=== PATIENT | female | born 1945 | race Caucasian/White ===

== ENCOUNTER 2023-11-25 17:32 | Outpatient (CLI) | payer MEDICARE | END 2023-11-25 17:33 | disposition critical access hospital (66) | LOC: EMS 17:32 | DX: M25.552 Pain in left hip (principal); R11.2 Nausea with vomiting, unspecified; W18.30XA Fall on same level, unspecified, initial encounter; Y92.481 Parking lot as the place of occurrence of the external cause | CPT/HCPCS: A0425; A0429 ==

== ENCOUNTER 2023-11-25 17:59 | Observation (INO) | payer MEDICARE, OTHER ==
--- NOTE | 2023-11-25 18:26 | ED Physician Documentation ---
History of Present Illness - Stated complaint Stated Complaint: GLF/HEAD STRIKE - Chief complaint Chief Complaint: Trauma Hd/Nk - History obtained from History obtained from: Patient, Family () - History of Present Illness Timing: Prior to arrival - Additonal information Additional information: Patient is a 78-year-old female presenting to the emergency department with symptoms of fall after missing the last step at a restaurant. On arrival patient appears partially confused. She has repetitive questioning which is abnormal according to . She did not lose consciousness and EMS were called to patient to bring patient to the emergency department. Patient reports left hip pain no neck pain she notes mild nausea but no episodes of vomiting. Patient ANO x 2 on arrival. She follows some simple commands but has difficulty followibng all commands. She reports only hip pain no head pain. notes she is not on any blood thinners. He notes she was feeling completely fine prior to this. PD PAST MEDICAL HISTORY - Present Medications Home Medications: Ambulatory Orders Medication Instructions Recorded Confirmed Atorvastatin Calcium 40 mg PO QPM 11/26/23 11/26/23 Levothyroxine Sodium [Synthroid] 75 mcg PO DAILY 11/26/23 11/26/23 Losartan [Cozaar] 100 mg PO DAILY 11/26/23 11/26/23 Omeprazole 20 mg PO DAILY 11/26/23 11/26/23 amLODIPine [Norvasc] 10 mg PO DAILY 11/26/23 11/26/23 atenoloL [Tenormin] 100 mg PO QPM 11/26/23 11/26/23 Docusate Sodium 250Mg Capsule 250 mg PO DAILY cap 11/27/23 [Colace 250Mg Capsule] Ondansetron Odt [Zofran Odt] 4 mg TL Q4HR PRN #30 tab 11/27/23 Calcium Carb ([place]) 500 mg PO DAILY #30 tab 11/28/23 [[place]-500] Cholecalciferol [Vitamin D3] 800 unit PO DAILY #30 tab 11/28/23 Gabapentin [Neurontin] 100 mg PO TID #90 cap 11/28/23 HYDROcod/ACETAM 5/325 [[place] 5/325] 1 tab PO Q6H PRN #40 tab 11/28/23 Magnesium Oxide [Mag Ox] 400 mg PO DAILYWM #30 tab 11/28/23 ONDANSETRON ODT Prepack 2 [ZOFRAN 4 mg TL Q6H PRN #20 tablet 11/29/23 ODT Prepack 2] - Allergies Allergies/Adverse Reactions: Allergies Allergy/AdvReac Type Severity Reaction Status Date / Time cephalexin AdvReac Unknown Verified 11/25/23 18:13 codeine AdvReac Unknown Verified 11/25/23 18:12 morphine AdvReac Unknown Verified 11/25/23 18:12 tramadol AdvReac Unknown Verified 11/25/23 18:13 PD ED PE NORMAL - Vitals Vital signs reviewed: Yes - General General: Other (Patient ANO x 2 appears somnolent on arrival only able to answer simple questions and simple commands has trouble focusing on repetitive questioning.) - HEENT HEENT: Other (No palpable hematoma on examination.) - Neck Neck: Other (C-spine tenderness noted on examination patient has no step-off on examination.) - Cardiac Cardiac: RRR, No murmur, No gallop, No rub - Respiratory Respiratory: No respiratory distress, Clear bilaterally - Abdomen Abdomen: Normal bowel sounds Results - Vitals Vitals: Oxygen O2 Source Room air - Labs Labs: Laboratory Tests 11/25/23 11/25/23 11/25/23 18:54 18:54 18:54 WBC 9.3 RBC 3.70 L Hgb 11.4 L Hct 34.4 L MCV 93.0 MCH 30.8 MCHC 33.1 RDW 12.3 Plt Count 280 MPV 9.5 Neut # (Auto) 6.5 Lymph # (Auto) 2.1 [place] # (Auto) 0.5 Eos # (Auto) 0.1 Baso # (Auto) 0.1 Absolute Nucleated RBC 0.00 Nucleated RBC % 0.0 PT 12.1 INR 1.1 Sodium 129 L Potassium 3.9 Chloride 98 L Carbon Dioxide 20 L Anion Gap 11.0 BUN 21 H Creatinine 1.1 Estimated GFR (MDRD) 48 L Glucose 174 H Calcium 9.7 Total Bilirubin 0.4 AST 24 ALT 15 Alkaline Phosphatase 123 H Troponin I High Sens Total Protein 7.5 Albumin 4.3 Globulin 3.2 Albumin/Globulin Ratio 1.3 11/25/23 18:54 WBC RBC Hgb Hct MCV MCH MCHC RDW Plt Count MPV Neut # (Auto) Lymph # (Auto) [place] # (Auto) Eos # (Auto) Baso # (Auto) Absolute Nucleated RBC Nucleated RBC % PT INR Sodium Potassium Chloride Carbon Dioxide Anion Gap BUN Creatinine Estimated GFR (MDRD) Glucose Calcium Total Bilirubin AST ALT Alkaline Phosphatase Troponin I High Sens 6.7 Total Protein Albumin Globulin Albumin/Globulin Ratio PD Medical Decision Making - ED course Complexity details: reviewed old records, reviewed results ED course: Patient is a 78-year-old female presenting to the emergency department With left hip pain head pain after fall while walking down the stairs at a restaurant. Patient did not lose consciousness she is not on blood thinners. However on arrival patient appeared confused ANO x 1 not answering all questions only following simple commands this is not her baseline according to on arrival.No specific focal deficits. Reproducible palpable left hip tenderness on examination no obvious swelling no obvious deformity on exam patient has movement of bilateral ankles and bilateral knees intact. No midline shift. No intracranial masses or hemorrhage. Recio-white matter interface is normal. Moderate periventricular white matter hypoattenuation, likely secondary to chronic microvascular ischemic disease. Parenchymal volume loss with concordant expected ventricular dilatation. Intracranial atherosclerotic calcifications. Basic labs here in the emergency department show no acute findings. Reevaluation patient after CT head shows patient is back to baseline ANO x 3 able to answer questions no persistent nausea or vomiting at this time after Zofran was given. Patient continues to complain of pain in left hip. Possible fracture seen on x-ray recommending CT scan here in emergency department. C- spine is reassuring neck brace removed here in emergency department on reevaluation. Patient given small dose of Dilaudid here in emergency department. CT scan shows multiple pelvic rami fracture with minimal displacement at left superior and inferior with possible right parasymphyseal. Discussed case with Dr. Devlin on-call orthopedics he recommends weightbearing with walker and discharged with follow-up in about a week and a half in the outpatient setting. Patient was given 2 doses of Dilaudid here she tolerated this well but when she tried to walk had severe nausea vomiting dizziness lightheadedness.Patient unable to tolerate standing. Discussed case with on-call hospitalist for count includes the [facility] overnight hospitalist he recommends trying Toradol for further pain control and if this is not successful he will accept patient. Patient taken over by Dr. Aguirre pending improvement in pain with Toradol. Departure - Departure Disposition: ED Place in Observation Clinical Impression: Pelvic ring fracture Condition: Good Discharge Date/Time: 11/26/23 01:02
[2023-11-25 19:01] LABS: BASOPHILS # (AUTO) 0.1 10^3/uL (0.0-0.1); BASOPHILS % (AUTO) 0.5 %; EOSINOPHILS # (AUTO) 0.1 10^3/uL (0.0-0.7); EOSINOPHILS % (AUTO) 1.4 %; HCT - HEMATOCRIT 34.4 % (37.0-47.0); HGB - HEMOGLOBIN 11.4 g/dL (12.0-16.0); LYMPHOCYTES # (AUTO) 2.1 10^3/uL (1.5-3.5); LYMPHOCYTES % (AUTO) 22.1 %; MEAN CORPUSCULAR HEMOGLOBIN 30.8 pg (27.0-31.0); MEAN CORPUSCULAR HGB CONC 33.1 g/dL (32.0-36.0); MEAN PLATELET VOLUME 9.5 fL (7.9-10.8); MONOCYTES # (AUTO) 0.5 10^3/uL (0.0-1.0); MONOCYTES % (AUTO) 5.2 %; NEUTROPHILS # (AUTO) 6.5 10^3/uL (1.5-6.6); NEUTROPHILS % (AUTO) 70.3 %; PLT - PLATELET COUNT 280 10^3/uL (130-450); RED CELL DISTRIBUTION WIDTH 12.3 % (12.0-15.0); WHITE BLOOD COUNT 9.3 x10^3/uL (4.8-10.8)
[2023-11-25 19:07] LABS: INR 1.1 (0.8-1.2); PT - PROTHROMBIN TIME 12.1 secs (9.9-12.6)
[2023-11-25] MEDS: ONDANSETRON 4 MG/2 ML VIAL IVP STA (19:07)
[2023-11-25 19:19] LABS: ALBUMIN 4.3 g/dL (3.2-5.5); ALBUMIN/GLOBULIN RATIO 1.3 (1.0-2.2); BILIRUBIN,TOTAL 0.4 mg/dL (0.2-1.0); CALCIUM 9.7 mg/dL (8.5-10.3); CREATININE 1.1 mg/dL (0.6-1.3); POTASSIUM 3.9 mmol/L (3.5-4.5); TOTAL PROTEIN 7.5 g/dL (6.4-8.9)
--- NOTE | 2023-11-25 19:47 | XRAY Report ---
PROCEDURE: Hip w/Pelvis 2-3V LT INDICATIONS: left hip pain after fall TECHNIQUE: AP view of the pelvis and left hip, lateral view of the left hip COMPARISON: None. FINDINGS: Exam limited by body habitus and severe osteopenia. Possible minimally displaced fracture of the left inferior pubic ramus. Otherwise, no pelvic ring dis ruption. No fracture or dislocation of the hips. IMPRESSION: Severe osteopenia limits evaluation. Possible minimally displaced fracture of the left superior pubic ramus. CT of the pelvis and left hip without contrast recommended for optimal evaluation. Reviewed by: Guevara Valiente MD on 11/25/2023 7:45 PM PDT Approved by: Guevara Valiente MD on 11/25/2023 7:45 PM PDT Station ID: [email or web address]
--- NOTE | 2023-11-25 19:50 | CT Report ---
PROCEDURE: Head WO INDICATIONS: GLF TECHNIQUE: Noncontrast 4.5 mm thick angled axial sections acquired from the foramen magnum to the vertex. For r adiation dose reduction, the following was used: automated exposure control, adjustment of mA and/or kV according to patient size. COMPARISON: None. FINDINGS: Image quality: Excellent. CSF spaces: Basal cisterns are patent. No extra-axial fluid collections. Ventricles are normal in size and shape. Brain: No midline shift. No intracranial masses or hemorrhage. Recio-white matter interface is norm al. Moderate periventricular white matter hypoattenuation, likely secondary to chronic microvascular ischemic disease. Parenchymal volume loss with concordant expected ventricular dilatation. Intracran ial atherosclerotic calcifications. Skull and face: Calvarium and visualized facial bones are intact, without suspicious lesions. Sinuses: Visualized sinuses and mastoids are clear. IMPRESSION: No acute intracranial pathology. Reviewed by: Guevara Valiente MD on 11/25/2023 7:49 PM PDT Approved by: Guevara Valiente MD on 11/25/2023 7:49 PM PDT Station ID: [email or web address]
--- NOTE | 2023-11-25 19:54 | CT Report ---
PROCEDURE: Cervical Spine WO INDICATIONS: neck pain after fall TECHNIQUE: Noncontrast 3 mm thick sections acquired from the skull base to the T4 level. Sagittal and coronal r eformats were then constructed. For radiation dose reduction, the following was used: automated exp osure control, adjustment of mA and/or kV according to patient size. COMPARISON: CT head without contrast 11/25/2023 FINDINGS: Image quality: Fair; motion artifact limits evaluation. Bones: No fractures or dislocations. Visualized superior ribs are intact. Prior right mastoidectom y. Mild multilevel facet and uncinate arthropathy. Nuchal ligament calcifications (6/39). Cervical lo rdosis alignment is preserved. Soft tissues: Prevertebral soft tissues are normal in thickness. No paravertebral hematomas. No ap ical pneumothoraces. Moderate bilateral common carotid arterial calcifications. Scarring at the lung apices. No apical pneumothorax. IMPRESSION: No acute CT abnormality of the cervical spine. Reviewed by: Guevara Valiente MD on 11/25/2023 7:52 PM PDT Approved by: Guevara Valiente MD on 11/25/2023 7:52 PM PDT Station ID: [email or web address]
[2023-11-25] MEDS: HYDROmorphone 1 MG/ML CARPUJECT IVP STA ×2 (20:14→22:09)
--- NOTE | 2023-11-25 21:26 | CT Report ---
PROCEDURE: Pelvis WO INDICATIONS: concern for fracture of pubic ramus on x-ray TECHNIQUE: Noncontrast 3 mm axial sections acquired through the bony pelvis, with coronal and sagittal reformatt ing. For radiation dose reduction, the following was used: automated exposure control, adjustment of mA and/or kV according to patient size. COMPARISON: Same-day radiograph FINDINGS: Image quality: Diagnostic Bones: No acute dislocation or fracture of the femoral necks, femoral heads, or acetabulum. Background degenerative changes. There is a minimally displaced fracture of the superior left pubic r ing and the inferior left pubic ring. Possible additional right parasymphyseal superior pubic ring no ndisplaced fracture. Diffuse osteopenia. Soft tissues: Right gluteal granuloma. Colonic diverticula. Large rectal gas burden. Postsurgical teodora nges in the pelvis. Intrapelvic structures are not well evaluated on this study. There are vascular calcifications. IMPRESSION: Minimally displaced left pubic ring fractures. There may also be a nondisplaced fracture in the right parasymphyseal region. No hip dislocation or femoral neck fracture. Marked rectal gas burden. Reviewed by: Ben Suarez MD on 11/25/2023 9:25 PM PDT Approved by: Ben Suarez MD on 11/25/2023 9:25 PM PDT Station ID: [id number]
[2023-11-25] MEDS ORDERED: KETOROLAC 15 MG/ML VIAL IVP STA (23:12)
[2023-11-25] MEDS: KETOROLAC 30 MG/ML VIAL IVP STA (23:38)
[2023-11-26] MEDS ORDERED: SODIUM CHLORIDE FLUSH 0.9% 10 ML SYRINGE IVP PRN (00:14)
[2023-11-26] MEDS ORDERED: ONDANSETRON 4 MG/2 ML VIAL IVP PRN (00:14)
[2023-11-26] MEDS ORDERED: IBUPROFEN 400 MG TABLET PO PRN (00:14)
--- NOTE | 2023-11-26 00:20 | HISTORY & PHYSICAL EXAMINATION ---
Chief Complaint - Chief Complaint Chief Complaint: Mechanical Fall History of Present Illness - Admitted From Admitted From:: Home - History Obtained From Records Reviewed: Yes History obtained from: ER team and EMR and Patient Exam Limitations: None - History of Present Illness HPI Comment/Other: "Patient is a 78-year-old female presenting to the emergency department with symptoms of fall after missing the last step at a restaurant. On arrival patient appears partially confused. She has repetitive questioning which is abnormal according to . She did not lose consciousness and EMS were called to patient to bring patient to the emergency department. Patient reports left hip pain no neck pain she notes mild nausea but no episodes of vomiting. Patient ANO x 2 on arrival. She follows some simple commands but has difficulty followibng all commands. She reports only hip pain no head pain. notes she is not on any blood thinners. He notes she was feeling completely fine prior to this." Patient was discussed with Ortho by ER who recommended to dc home, patient was in intractable pain, given Dialudid, later given NSAIDS still in significant pain will be admitted for pain control and PT eval in am Due to technical errror I was not able to see her on the video, had a nice talk with Jerardo, got all info, reassured him that Dorcas will be getting good care and also have informed to bring all the meds patient takes at home with him to hospital tomorrow am, Also informed and obtained oral consent for telemedicine visit and informed that I am based in [facility] very appreciative of the call. Meds/Allgy - Home Medications Home Medications: Ambulatory Orders Medication Instructions Recorded Confirmed HYDROcod/ACETAM 5/325 [[place] 5/325] 1 - 2 tab PO Q6H PRN #15 tablet 11/25/23 - Allergies Allergies/Adverse Reactions: Allergies Allergy/AdvReac Type Severity Reaction Status Date / Time cephalexin AdvReac Unknown Verified 11/25/23 18:13 codeine AdvReac Unknown Verified 11/25/23 18:12 morphine AdvReac Unknown Verified 11/25/23 18:12 tramadol AdvReac Unknown Verified 11/25/23 18:13 Review of Systems - Musculoskeletal Musculoskeletal: reports: Muscle pain, Back pain, Stiffness, Joint pain Prior Level of Functionality: Independent with ADL Exam - Vital Signs Vital Signs: Vital Signs x48h Temp Pulse Resp BP Pulse Ox 11/26/23 00:00 85 14 136/96 H 96 11/25/23 22:07 74 24 144/71 H 91 L 11/25/23 20:12 75 21 136/73 H 95 11/25/23 18:07 36.0 C L 21 114/58 L - Physical Exam General Appearance: positive: Mild distress Eyes Bilateral: positive: Normal inspection, PERRL ENT: positive: ENT inspection nml, Pharynx nml, No signs of dehydration Neck: positive: Nml inspection, Thyroid nml, No JVD, Trachea midline Respiratory: positive: Chest non-tender, No respiratory distress, Breath sounds nml Cardiovascular: positive: Regular rate & rhythm, No murmur, No gallop Abdomen: positive: Non-tender, No organomegaly, Nml bowel sounds, No distention Back: positive: Nml inspection Skin: positive: Color nml, No rash, Warm, Dry Extremities: positive: Non-tender, Full ROM, Nml appearance Neurologic/Psychiatric: positive: Oriented x3, Mood/affect nml Sepsis Event Note (H) - Evaluation Current Stage of Sepsis: Ruled out Conclusion/Plan - Problem List (1) Pelvic fracture Conclusion/Plan: 78 yr [place] woman was with her getting out of restaurant had mechanical fall extensive work up done in ER 1. Pelvice fracture 2.Intractable pain 3,Hyponatremia 4. Unable to ambulate safely Plan Admit to Med surg for observation Gentle hydration Pain meds PT to work with her in am Ortho consulted by ER DVt prophylaxis Full code Qualifiers: Encounter type: initial encounter Pelvic bone location: unspecified part of pelvis Fracture type: closed Fracture alignment: nondisplaced Qualified Code(s): S32.9XXA - Fracture of unspecified parts of lumbosacral spine and pelvis, initial encounter for closed fracture - Lab Results Fish Bones: 11/25/23 18:54 11/25/23 18:54
--- NOTE | 2023-11-26 00:23 | ED Physician Documentation ---
ED Addendum - Addendum Addendum: 11/26/23 00:23 I received signout/turnover of care on this patient from VERO olmos; please see her note for complete H&P. In brief, this patient sustained a fall tonight resulting in sudden onset of Left-sided pelvic/hip pain. Pain is reportedly exacerbated with movement and any attempts at weight-bearing. Tonight's testing reveals a left pelvic ring fracture. After IV Dilaudid, IV Toradol, there has been inadequate analgesia and the patient continues to be unable to bear any weight. Sound telehealth practitioner accepts patient to [facility] inpatient for ongoing pain control.
[2023-11-26] MEDS: SODIUM CHLORIDE 0.9% 1,000 ML IV SCH (00:54)
[2023-11-26] MEDS: oxyCODONE 5 MG TABLET PO PRN ×2 (01:36→13:18)
[2023-11-26] MEDS: SODIUM CHLORIDE FLUSH 0.9% 10 ML SYRINGE IVP SCH (05:58)
[2023-11-26] MEDS: KETOROLAC 15 MG/ML VIAL IVP SCH ×2 (05:58→11:13)
[2023-11-26] MEDS: ACETAMINOPHEN 500 MG TABLET PO SCH (05:59)
--- NOTE | 2023-11-26 11:05 | PHARMACY PROGRESS NOTE ---
- Best Possible Medication History Admit Date and Time: 11/26/23 0014 Processed by: Pharmacy (Medication Reconciliation completed by Senior Mortgage Underwriter) Medication History completed: Yes Patient Interview: Completed Secondary Source(s): Written medication list, Insurance records As the person ultimately responsible for medication therapy, providers are able to order a medication from an existing home medication list in [facility] via the "Reconcile Routine" prior to Confirmation of that medication by system support analyst. Such practice is discouraged except when the physician, in their clinical judgment, deems that a medical need exists for a medication without regard to previous use.
[2023-11-26] MEDS: DOCUSATE SODIUM 250 MG CAPSULE PO SCH (12:27)
[2023-11-26] MEDS: polyethylene glycoL 3350 17 GM PACKET PO SCH (12:28)
[2023-11-26] MEDS: PANTOPRAZOLE 40 MG TABLET PO SCH (12:28)
[2023-11-26] MEDS: GABAPENTIN 300 MG CAPSULE PO SCH (13:38)
--- NOTE | 2023-11-26 13:46 | PROVIDER PROGRESS NOTE ---
Subjective - Prog Note Date Prog Note Date: 11/26/23 Prog Note Time: 13:34 - Subjective Pt reports feeling: Improved Subjective: Nadya is a pleasant 78-year old female who presents today with a left pelvic ring fracture. She reports she missed a step after getting out of a restaurant. Today she reports her pain is better and is expressing interest in wanting to ambulate and use the bathroom. Patient reports feeling "sleepy" after her pain medications. Patient reports having pain on her left side of the head due to the fall. Patient had a head CT as part of the emergency work up which was negative. Patient did state she felt nauseous yesterday but not today. Patient denies any changes to vision, hearing, headaches, fever, chills, night sweats, shortness of breath, chest pain, abdominal discomfort, constipation, diarrhea, fatigue or loss of sensation. Current Medications - Current Medications Current Medications: Medications Docusate Sodium (Docusate Sodium 250 Mg Capsule) 250 mg PO DAILY [facility] Last Admin: 11/26/23 12:27 Dose: 250 mg Oxycodone HCl (Oxycodone 5 Mg Tablet) 10 mg PO Q4HR PRN PRN Reason: Pain 8 to 10 Last Admin: 11/26/23 01:36 Dose: 10 mg Acetaminophen (Acetaminophen) 1,000 mg in 100 mls @ 400 mls/hr IV Q8HR PRN PRN Reason: Moderate Pain (Level 4-6) Amlodipine Besylate (Amlodipine 5 Mg Tablet) 10 mg PO DAILY [facility] Atenolol (Atenolol 25 Mg Tablet) 100 mg PO QPM [facility] Gabapentin (Gabapentin 300 Mg Capsule) 300 mg PO TID [facility] Last Admin: 11/26/23 13:38 Dose: 300 mg Ketorolac Tromethamine (Ketorolac 15 Mg/Ml Vial) 15 mg IVP Q6H [facility] Stop: 11/26/23 18:01 Last Admin: 11/26/23 11:13 Dose: 15 mg Levothyroxine Sodium (Levothyroxine 75 Mcg Tablet) 75 mcg PO QDAC [facility] Losartan Potassium (Losartan 50 Mg Tablet) 100 mg PO DAILY [facility] Ondansetron HCl (Ondansetron 4 Mg/2 Ml Vial) 4 mg IVP Q6HR PRN PRN Reason: Nausea / Vomiting Oxycodone HCl (Oxycodone 5 Mg Tablet) 5 mg PO Q4HR PRN PRN Reason: Pain 5 to 7 Last Admin: 11/26/23 13:18 Dose: 5 mg Pantoprazole Sodium (Pantoprazole 40 Mg Tablet) 40 mg PO QDAC [facility] Last Admin: 11/26/23 12:28 Dose: 40 mg Polyethylene Glycol (Polyethylene Glycol 3350 17 Gm Packet) 17 gm PO DAILY [facility] Last Admin: 11/26/23 12:28 Dose: 17 gm Objective - Vital Signs/Intake & Output Vital Signs: Vital Signs x48h Temp Pulse Resp BP Pulse Ox 11/26/23 08:00 36.6 C 90 20 144/83 H 95 Intake & Output: Intake & Output 11/23/23 11/24/23 11/25/23 11/26/23 23:59 23:59 23:59 23:59 Intake Total 1800 Output Total 250 Balance 1550 - Objective General Appearance: positive: No acute distress, Alert Eyes Bilateral: positive: Normal inspection, No lid inflammation, Conjunctivae nml, No scleral icterus Neck: positive: Nml inspection, Thyroid nml, No JVD, Trachea midline Respiratory: positive: Chest non-tender, No respiratory distress, Breath sounds nml Cardiovascular: positive: Regular rate & rhythm, No murmur, No gallop Abdomen: positive: Nml bowel sounds, No distention Skin: positive: Color nml, No rash Neurologic/Psychiatric: positive: Oriented x3 - Lab Results Fish Bones: 11/25/23 18:54 11/25/23 18:54 Other Labs: Lab Results x24hrs 11/25/23 11/25/23 11/25/23 Range/Units 18:54 18:54 18:54 WBC (4.8-10.8) x10^3/uL RBC (4.20-5.40) 10^6/uL Hgb (12.0-16.0) g/dL Hct (37.0-47.0) % MCV (81.0-99.0) fL MCH (27.0-31.0) pg MCHC (32.0-36.0) g/dL RDW (12.0-15.0) % Plt Count (130-450) 10^3/uL MPV (7.9-10.8) fL Neut # (Auto) (1.5-6.6) 10^3/uL Lymph # (Auto) (1.5-3.5) 10^3/uL [place] # (Auto) (0.0-1.0) 10^3/uL Eos # (Auto) (0.0-0.7) 10^3/uL Baso # (Auto) (0.0-0.1) 10^3/uL Absolute Nucleated RBC x10^3/uL Nucleated RBC % /100WBC PT 12.1 (9.9-12.6) secs INR 1.1 (0.8-1.2) Sodium 129 L (135-145) mmol/L Potassium 3.9 (3.5-4.5) mmol/L Chloride 98 L (101-111) mmol/L Carbon Dioxide 20 L (21-32) mmol/L Anion Gap 11.0 (6-13) BUN 21 H (6-20) mg/dL Creatinine 1.1 (0.6-1.3) mg/dL Estimated GFR (MDRD) 48 L (>89) Glucose 174 H (74-104) mg/dL Calcium 9.7 (8.5-10.3) mg/dL Total Bilirubin 0.4 (0.2-1.0) mg/dL AST 24 (10-42) IU/L ALT 15 (10-60) IU/L Alkaline Phosphatase 123 H (42-121) IU/L Troponin I High Sens 6.7 (2.3-14.8) ng/L Total Protein 7.5 (6.4-8.9) g/dL Albumin 4.3 (3.2-5.5) g/dL Globulin 3.2 (2.1-4.2) g/dL Albumin/Globulin Ratio 1.3 (1.0-2.2) 11/25/23 Range/Units 18:54 WBC 9.3 (4.8-10.8) x10^3/uL RBC 3.70 L (4.20-5.40) 10^6/uL Hgb 11.4 L (12.0-16.0) g/dL Hct 34.4 L (37.0-47.0) % MCV 93.0 (81.0-99.0) fL MCH 30.8 (27.0-31.0) pg MCHC 33.1 (32.0-36.0) g/dL RDW 12.3 (12.0-15.0) % Plt Count 280 (130-450) 10^3/uL MPV 9.5 (7.9-10.8) fL Neut # (Auto) 6.5 (1.5-6.6) 10^3/uL Lymph # (Auto) 2.1 (1.5-3.5) 10^3/uL [place] # (Auto) 0.5 (0.0-1.0) 10^3/uL Eos # (Auto) 0.1 (0.0-0.7) 10^3/uL Baso # (Auto) 0.1 (0.0-0.1) 10^3/uL Absolute Nucleated RBC 0.00 x10^3/uL Nucleated RBC % 0.0 /100WBC PT (9.9-12.6) secs INR (0.8-1.2) Sodium (135-145) mmol/L Potassium (3.5-4.5) mmol/L Chloride (101-111) mmol/L Carbon Dioxide (21-32) mmol/L Anion Gap (6-13) BUN (6-20) mg/dL Creatinine (0.6-1.3) mg/dL Estimated GFR (MDRD) (>89) Glucose (74-104) mg/dL Calcium (8.5-10.3) mg/dL Total Bilirubin (0.2-1.0) mg/dL AST (10-42) IU/L ALT (10-60) IU/L Alkaline Phosphatase (42-121) IU/L Troponin I High Sens (2.3-14.8) ng/L Total Protein (6.4-8.9) g/dL Albumin (3.2-5.5) g/dL Globulin (2.1-4.2) g/dL Albumin/Globulin Ratio (1.0-2.2) ABX Reporting Has patient been on IV antibiotics over the past 48 hours?: No Sepsis Event Note (H) - Evaluation Current Stage of Sepsis: Ruled out Assessment/Plan - Problem List (1) Pelvic ring fracture Impression: - Patient has a stable pelvic pain fracture with pain. I will prescribe multimodal analgesics to better manage the pain and laxatives to help with bowel movement - Prescribe oral oxycodone 5 mg Q4H PRN - Prescribe IV acetaminophen 1000mg in 100 ml Q8H - Prescribe oral Gabapentin 300 mg TID - Prescribe oral Docusate 250mg daily - Prescribe oral Miralax 17 gm daily - I will order a PT evaluation for a potential transfer to rehab. For now I re commended the patient and the team to have the patient sit at the edge of the bed and pivot to the chair to help with her mobility. I have no PT/OT services today (2) Renal insufficiency Impression: - GFR is low therefore I am discontinuing Toradol. Will reassess GFR tomorrow Laboratory Tests 11/25/23 18:54 Estimated GFR (MDRD) 48 L (3) Osteoporosis Impression: - Patient does not take bisphosphonates due to the risk osteonecrosis of the jaw. - Prescribe oral Calcium and Vitamin D (4) Hyponatremia Impression: - Low sodium was noticed on lab. I will order a CBC tomorrow to reassess Laboratory Tests 11/25/23 18:54 Sodium 129 L (5) Anemia Impression: - mild diagnosis of anemia with no clinical significance. I will order a CBC for tomorrow to confirm Laboratory Tests 11/25/23 18:54 RBC 3.70 L Hgb 11.4 L Hct 34.4 L (6) Hypertension Impression: -Managed with medications - Oral Amlodipine 10mg daily - Oral Atenolol 100 mg QPM - Oral Losartan 100 mg daily Selected Entries 11/26/23 08:00 Blood Pressure 144/83 H [Right Brachial artery] (7) Hyperlipemia Impression: - Managed with medications - Oral Atorvastatin 40mg QPM
[2023-11-26] MEDS: ACETAMINOPHEN 1,000 MG/100 ML 1,000 MG/100 ML BAG IV PRN (18:41)
[2023-11-26] MEDS: ATORVASTATIN 40 MG TABLET PO SCH (22:05)
[2023-11-26] MEDS: atenoloL 25 MG TABLET PO SCH (22:05)
[2023-11-27 07:49] LABS: BASOPHILS # (AUTO) 0.1 10^3/uL (0.0-0.1); BASOPHILS % (AUTO) 0.9 %; EOSINOPHILS # (AUTO) 0.3 10^3/uL (0.0-0.7); EOSINOPHILS % (AUTO) 3.6 %; HCT - HEMATOCRIT 31.4 % (37.0-47.0); HGB - HEMOGLOBIN 10.1 g/dL (12.0-16.0); LYMPHOCYTES # (AUTO) 1.3 10^3/uL (1.5-3.5); LYMPHOCYTES % (AUTO) 14.9 %; MEAN CORPUSCULAR HEMOGLOBIN 30.5 pg (27.0-31.0); MEAN CORPUSCULAR HGB CONC 32.2 g/dL (32.0-36.0); MEAN CORPUSCULAR VOLUME 94.9 fL (81.0-99.0); MEAN PLATELET VOLUME 9.4 fL (7.9-10.8); MONOCYTES # (AUTO) 0.5 10^3/uL (0.0-1.0); MONOCYTES % (AUTO) 5.9 %; NEUTROPHILS # (AUTO) 6.4 10^3/uL (1.5-6.6); NEUTROPHILS % (AUTO) 72.9 %; PLT - PLATELET COUNT 182 10^3/uL (130-450); RED BLOOD COUNT 3.31 10^6/uL (4.20-5.40); RED CELL DISTRIBUTION WIDTH 12.6 % (12.0-15.0); WHITE BLOOD COUNT 8.8 x10^3/uL (4.8-10.8)
[2023-11-27 08:03] LABS: CALCIUM 9.1 mg/dL (8.5-10.3); CREATININE 0.9 mg/dL (0.6-1.3); POTASSIUM 4.5 mmol/L (3.5-4.5)
[2023-11-27] MEDS: LOSARTAN 50 MG TABLET PO SCH (08:10)
[2023-11-27] MEDS: amLODIPine 5 MG TABLET PO SCH (08:10)
[2023-11-27] MEDS: LEVOTHYROXINE 75 MCG TABLET PO SCH (08:10)
[2023-11-27] MEDS ORDERED: amLODIPine 5 MG TABLET PO SCH (09:00)
[2023-11-27] MEDS ORDERED: LOSARTAN 50 MG TABLET PO SCH (09:00)
[2023-11-27] MEDS: ONDANSETRON ODT 4 MG TABLET TL PRN (09:13)
--- NOTE | 2023-11-27 09:19 | Discharge Plan ---
Discharge Plan Problem Reviewed?: Yes Disposition: 06 Home Health Service Condition: Good Prescriptions: Ondansetron Odt [Zofran Odt] 4 mg TL Q4HR PRN #30 tab PRN Reason: Nausea / Vomiting Magnesium Oxide [Mag Ox] 400 mg PO DAILYWM #30 tab Gabapentin [Neurontin] 100 mg PO TID #90 cap HYDROcod/ACETAM 5/325 [[place] 5/325] 1 tab PO Q6H PRN #40 tab PRN Reason: Moderate Pain (Level 4-6) Calcium Carb (Oyster Shell) [Oysco-500] 500 mg PO DAILY #30 tab Cholecalciferol [Vitamin D3] 800 unit PO DAILY #30 tab Diet: Regular Activity Restrictions: Wt Bearing as Tolerated Shower Restrictions: No Driving Restrictions: Yes (no driving on pain meds) Assistance Devices: Walker Weight Bearing: Partial Weight Instruction Topics: ED Fx Pelvis Health Concerns: You were admitted to the hospital because you broke your pelvis when you fell. Your pain was too severe to go home and therefore you were admitted to the hospital. The emergency room doctor talked to the orthopedic doctor and there is no need for any surgery. I expect that you will have pain for several weeks. I would want you to see your primary care doctor for recheck in the next 2 weeks, sooner if possible. You may need additional pain medication. You can walk as much as is tolerated with a walker. I would not recommend that you drive either on pain medications or while you are in severe pain. We will send a referral for home health for physical therapy. I would recommend that you take your blood pressure at home before taking your blood pressure medications. Your blood pressure was a little bit low this morning. I would recommend that you not take your blood pressure medicines if your blood pressure is less than 120 on the top number. Pain medications and not moving as much can cause constipation. I would recommend that you do several things to avoid this. Make sure that you drink plenty of fluids. I would recommend that you drink things with low amounts of sugar but some salts in them as well because your sodium is actually a bit low. Gatorade Zero would be a good option. There is also a powder available called liquid IV, and they make a low sugar formulation of this. That would also provide electrolytes to your body which may help you feel better. I think that the pain medicine is giving you some nausea and therefore I have sent antinausea tablets. I would recommend that you see your primary care doctor and follow-up also for your sodium which was a bit low while you were here. It was 130, and normal is 135. Additionally your blood sugar was a little bit elevated this morning. Again I would recommend that she see your primary care doctor and follow-up and get repeat labs to make sure your sugar is not high. Plan of Treatment: Pain medication Home health physical therapy Follow-up with your primary care doctor and get repeat labs Avoid constipation Care Goals: You have significant pain for 2 weeks with regards to this pelvic fracture. After the first several weeks the pain will develop into an ache which will slowly go away. I would recommend using a walker until you are very very steady on your feet, then consider maybe using a cane or some assistive device for the foreseeable future. I am ordering home health physical therapy and I would definitely recommend following the suggestions made by the therapist. Follow-Up Care: Home Health - PT No Smoking: If you smoke, Please STOP! Call for help. Follow-up with: Zach Figueroa MD [Physician No Access] -
[2023-11-27] MEDS ORDERED: ACETAMINOPHEN 500 MG TABLET PO PRN ×2 (12:30→12:48)
[2023-11-27] MEDS ORDERED: ONDANSETRON 4 MG/2 ML VIAL IVP PRN (12:34)
[2023-11-27] MEDS: ONDANSETRON 4 MG/2 ML VIAL IVP PRN (12:42)
--- NOTE | 2023-11-27 13:16 | PROVIDER PROGRESS NOTE ---
Progress Note 78 yo female w/minimally displaced left pubic ring fxs and possible nondisplaced fx in the R parasymphyseal region after a ground level fall. Today, she has had nausea through much of the morning. She notes that she was getting premedicated w/IV zofran prior to getting oxycodone before now, but her IV was d/c'd earlier. She also notes she is having a very hard time getting up to the commode and has been urinating on the floor before she can get on the commode. She is asking for a Purewick. She and her express they feel she is being "pushed out" by staff and are wondering why. Explained the difference between observation status and inpatient status and the decrease in insurance payment and potential cost to them. Reassured them that no one in the hospital is trying to push them out, but rather trying to ensure they don't end up with an unexpected hospital bill. Also reassured them that if she is unable to safely discharge, we would not discharge her. On exam, she was ill appearing, lungs clr, RRR, abdomen soft, BTx4, no C/C/E. Last BM 2 d ago. Assessment/Plan: 1) Pelvic fx 2) Intractable nausea IV to be replaced. IV zofran ordered. Discussed medication change from oxycodone to hydrocodone w/[employer] (to reduce nausea) and to schedule tylenol. Purewick to be replaced as pt is struggling to get up to commode at this time.
--- NOTE | 2023-11-27 13:38 | PROVIDER PROGRESS NOTE ---
Subjective - Prog Note Date Prog Note Date: 11/27/23 Prog Note Time: 08:00 - Subjective Pt reports feeling: Worse Subjective: Her pain has been relatively well-controlled, but at the expense of having nausea and dizziness. She does not feel well overall. She was able to get up to the chair yesterday and we are awaiting OT evaluation today. Her IV was not patent and therefore was discontinued. We attempted oral Zofran and oxycodone but these have failed. As the morning progressed she is unable to work with occupational therapy (there is no PT on staff today) due to nausea and dizziness. She is having some pain in her left upper quadrant/left lower chest. She did not hit her chest wall when she fell. the pain has been relieved by medicine. it is not getting worse when she gets up. She is having difficulty getting up to the bathroom because of the pain and is having some dribbling when she does try to get up to the bathroom. Overall she is not progressing with the things that would allow her to leave the hospital Current Medications - Current Medications Current Medications: Medications Atorvastatin Calcium (Atorvastatin 40 Mg Tablet) 40 mg PO QPM COUNT INCLUDES THE [facility] Last Admin: 11/26/23 22:05 Dose: 40 mg Losartan Potassium (Losartan 50 Mg Tablet) 100 mg PO DAILY COUNT INCLUDES THE [facility] Last Admin: 11/27/23 08:10 Dose: Not Given Acetaminophen (Acetaminophen 325 Mg Tablet) 650 mg PO Q8H COUNT INCLUDES THE [facility] Hydrocodone Bitart/Acetaminophen (Hydrocod/Acetam 5/325 Mg Tablet) 1 tab PO Q6H PRN PRN Reason: Moderate Pain (Level 4-6) Amlodipine Besylate (Amlodipine 5 Mg Tablet) 10 mg PO DAILY COUNT INCLUDES THE [facility] Last Admin: 11/27/23 08:10 Dose: Not Given Atenolol (Atenolol 25 Mg Tablet) 100 mg PO QPM COUNT INCLUDES THE [facility] Last Admin: 11/26/23 22:05 Dose: 100 mg Docusate Sodium (Docusate Sodium 250 Mg Capsule) 250 mg PO DAILY COUNT INCLUDES THE [facility] Last Admin: 11/27/23 08:10 Dose: 250 mg Gabapentin (Gabapentin 100 Mg Capsule) 100 mg PO TID COUNT INCLUDES THE [facility] Levothyroxine Sodium (Levothyroxine 75 Mcg Tablet) 75 mcg PO QDAC COUNT INCLUDES THE [facility] Last Admin: 11/27/23 08:10 Dose: 75 mcg Ondansetron HCl (Ondansetron Odt 4 Mg Tablet) 4 mg TL Q4HR PRN PRN Reason: Nausea / Vomiting Last Admin: 11/27/23 09:13 Dose: 4 mg Ondansetron HCl (Ondansetron 4 Mg/2 Ml Vial) 4 mg IVP Q4HR PRN PRN Reason: Nausea / Vomiting Last Admin: 11/27/23 12:42 Dose: 4 mg Pantoprazole Sodium (Pantoprazole 40 Mg Tablet) 40 mg PO QDAC COUNT INCLUDES THE [facility] Last Admin: 11/27/23 04:39 Dose: 40 mg Polyethylene Glycol (Polyethylene Glycol 3350 17 Gm Packet) 17 gm PO DAILY COUNT INCLUDES THE [facility] Last Admin: 11/27/23 08:10 Dose: 17 gm Objective - Vital Signs/Intake & Output Vital Signs: Vital Signs x48h Temp Pulse Pulse Resp BP BP Pulse Ox 11/27/23 12:58 36.6 C 86 16 157/76 H 94 11/27/23 09:00 93 164/84 H 11/27/23 07:53 36.6 C 80 18 99/67 90 L O2 Flow Rate 11/27/23 12:58 0 11/27/23 09:00 11/27/23 07:53 Intake & Output: Intake & Output 11/24/23 11/25/23 11/26/23 11/27/23 23:59 23:59 23:59 23:59 Intake Total 2686 500 Output Total 1850 Balance 836 500 - Objective General Appearance: positive: Mild distress Eyes Bilateral: positive: Normal inspection ENT: positive: ENT inspection nml Neck: positive: Nml inspection Respiratory: positive: Breath sounds nml Cardiovascular: positive: Regular rate & rhythm, Other (chest wall without bruising, non tender). negative: Crepitus Abdomen: positive: Non-tender, No distention Skin: positive: Color nml - Lab Results Fish Bones: 11/27/23 07:38 11/27/23 07:38 Other Labs: Lab Results x24hrs 11/27/23 11/27/23 Range/Units 07:38 07:38 WBC 8.8 (4.8-10.8) x10^3/uL RBC 3.31 L (4.20-5.40) 10^6/uL Hgb 10.1 L (12.0-16.0) g/dL Hct 31.4 L (37.0-47.0) % MCV 94.9 (81.0-99.0) fL MCH 30.5 (27.0-31.0) pg MCHC 32.2 (32.0-36.0) g/dL RDW 12.6 (12.0-15.0) % Plt Count 182 (130-450) 10^3/uL MPV 9.4 (7.9-10.8) fL Neut # (Auto) 6.4 (1.5-6.6) 10^3/uL Lymph # (Auto) 1.3 L (1.5-3.5) 10^3/uL [place] # (Auto) 0.5 (0.0-1.0) 10^3/uL Eos # (Auto) 0.3 (0.0-0.7) 10^3/uL Baso # (Auto) 0.1 (0.0-0.1) 10^3/uL Absolute Nucleated RBC 0.00 x10^3/uL Nucleated RBC % 0.0 /100WBC Sodium 129 L (135-145) mmol/L Potassium 4.5 (3.5-4.5) mmol/L Chloride 99 L (101-111) mmol/L Carbon Dioxide 24 (21-32) mmol/L Anion Gap 6.0 (6-13) BUN 13 (6-20) mg/dL Creatinine 0.9 (0.6-1.3) mg/dL Estimated GFR (MDRD) 61 L (>89) Glucose 140 H (74-104) mg/dL Calcium 9.1 (8.5-10.3) mg/dL Sepsis Event Note (H) - Evaluation Current Stage of Sepsis: Ruled out Assessment/Plan - Problem List (1) Pelvic ring fracture Impression: Patient has a stable pelvic pain fracture with pain. I have instituted multimodal pain control. Pain control is proving to be a challenge due to side effects from narcotics with nausea and dizziness. It has been difficult to control the nausea. She reports a history of these problems with oxycodone in the past although she did take it for quite a few months after a spiral fracture of her tibia in 2010. - Changing from oxycodone to hydrocodone in an effort to avoid nausea -Changing her resort Zofran to include IV option, and nursing is restarting IV as she is too nauseated to tolerate oral Zofran. - Decreasing scheduled acetaminophen as she will be getting some acetaminophen with the hydrocodone - Decreasing oral gabapentin to 100 mg 3 times daily as I believe she is getting some dizziness with this - Continue bowel meds; docusate and MiraLAX. She had a bowel movement 2 days ago. - OT has attempted to see the patient but she is too nauseated and too painful. They will reattempt this afternoon after medication adjustments have had an opportunity to be effective. (2) Renal insufficiency Impression: - GFR is low on admission labs; therefore Toradol was discontinued. I would like to stay away from NSAIDs given her age. Laboratory Tests 11/25/23 18:54 Estimated GFR (MDRD) 48 L (3) Osteoporosis Impression: - Patient does not take bisphosphonates due to the risk of osteonecrosis of the jaw. - I have instituted calcium and vitamin D to assist her in healing this pelvic ring fracture. (4) Hyponatremia Impression: - Mild hyponatremia is persistent on labs. She is not any diuretics as an outpatient. She is on a regular diet so she will get some dietary sodium. She has been nauseated and her oral intake has been poor. I will recheck BMP in the a.m. Laboratory Tests 11/25/23 11/27/23 18:54 07:38 Sodium 129 L 129 L (5) Anemia Impression: - mild diagnosis of anemia with no clinical significance. I will order a CBC for tomorrow to confirm Laboratory Tests 11/25/23 18:54 RBC 3.70 L Hgb 11.4 L Hct 34.4 L (6) Hypertension Impression: -Managed with outpatient medications - Oral Amlodipine 10mg daily - Oral Atenolol 100 mg QPM - Oral Losartan 100 mg daily She had 1 episode of hypotension this morning when she was feeling particularly nauseated. Her medications were held at that time. Hold parameters have been placed on her medications will continue to observe her blood pressure. Selected Entries 11/26/23 11/26/23 11/27/23 20:36 23:48 04:35 Blood Pressure 142/63 H 146/65 H 158/75 H [Right Brachial artery] Blood Pressure [Standing] 11/27/23 11/27/23 11/27/23 07:53 09:00 12:58 Blood Pressure 99/67 157/76 H [Right Brachial artery] Blood Pressure 164/84 H [Standing] (7) Hyperlipemia Impression: Outpatient atorvastatin restarted.
[2023-11-27] MEDS: GABAPENTIN 100 MG CAPSULE PO SCH (13:48)
[2023-11-27] MEDS: ACETAMINOPHEN 325 MG TABLET PO SCH (13:49)
[2023-11-27] MEDS: HYDROcod/ACETAM 5/325 MG TABLET PO PRN (16:56)
[2023-11-28 05:34] LABS: BASOPHILS # (AUTO) 0.1 10^3/uL (0.0-0.1); BASOPHILS % (AUTO) 0.8 %; EOSINOPHILS # (AUTO) 0.4 10^3/uL (0.0-0.7); EOSINOPHILS % (AUTO) 4.8 %; HCT - HEMATOCRIT 30.9 % (37.0-47.0); HGB - HEMOGLOBIN 10.2 g/dL (12.0-16.0); LYMPHOCYTES # (AUTO) 1.8 10^3/uL (1.5-3.5); MEAN CORPUSCULAR VOLUME 93.9 fL (81.0-99.0); MEAN PLATELET VOLUME 9.9 fL (7.9-10.8); MONOCYTES # (AUTO) 0.7 10^3/uL (0.0-1.0); MONOCYTES % (AUTO) 7.6 %; NEUTROPHILS # (AUTO) 6.1 10^3/uL (1.5-6.6); NEUTROPHILS % (AUTO) 66.5 %; PLT - PLATELET COUNT 205 10^3/uL (130-450); RED BLOOD COUNT 3.29 10^6/uL (4.20-5.40); RED CELL DISTRIBUTION WIDTH 12.4 % (12.0-15.0); WHITE BLOOD COUNT 9.1 x10^3/uL (4.8-10.8)
[2023-11-28 05:44] LABS: MAGNESIUM 1.5 mg/dL (1.7-2.3)
[2023-11-28 05:50] LABS: CALCIUM 9.3 mg/dL (8.5-10.3); CREATININE 0.8 mg/dL (0.6-1.3); POTASSIUM 4.4 mmol/L (3.5-4.5)
[2023-11-28 07:33] VITALS: O2SAT 94
--- NOTE | 2023-11-28 07:33 | PROVIDER PROGRESS NOTE ---
Subjective - Prog Note Date Prog Note Date: 11/28/23 Prog Note Time: 07:30 - Subjective Pt reports feeling: Improved Subjective: She reports that her pain was better overnight. She is moving her legs in bed with minimal pain. She states this AM that she feels that everyone wants her to go too fast with her recovery. She wants to get home today. I explained to her that it seems she was in too much pain and was not able to do what she needed to do to get into her house yesterday. She thinks that she can make it today. She wants to go home with HH PT. She says that her needs her at home, even if she is unable to get around very well. Everything that she needs is all on one level, and she has wheelchair/walker/cane at home. She is less nauseated today, and feels optimistic. Current Medications - Current Medications Current Medications: Medications Docusate Sodium (Docusate Sodium 250 Mg Capsule) 250 mg PO DAILY [facility] Last Admin: 11/27/23 08:10 Dose: 250 mg Acetaminophen (Acetaminophen 325 Mg Tablet) 650 mg PO Q8H [facility] Last Admin: 11/28/23 05:31 Dose: 650 mg Hydrocodone Bitart/Acetaminophen (Hydrocod/Acetam 5/325 Mg Tablet) 1 tab PO Q6H PRN PRN Reason: Moderate Pain (Level 4-6) Last Admin: 11/28/23 00:44 Dose: 1 tab Amlodipine Besylate (Amlodipine 5 Mg Tablet) 10 mg PO DAILY [facility] Last Admin: 11/27/23 08:10 Dose: Not Given Atenolol (Atenolol 25 Mg Tablet) 100 mg PO QPM [facility] Last Admin: 11/27/23 20:58 Dose: 100 mg Atorvastatin Calcium (Atorvastatin 40 Mg Tablet) 40 mg PO QPM [facility] Last Admin: 11/27/23 20:59 Dose: 40 mg Calcium Carbonate/Glycine (Calcium Carb (Oyster Shell) 500 Mg Tablet) 500 mg PO DAILY [facility] Cholecalciferol (Cholecalciferol 400 Unit Tablet) 800 unit PO DAILY [facility] Gabapentin (Gabapentin 100 Mg Capsule) 100 mg PO TID [facility] Last Admin: 11/28/23 05:31 Dose: 100 mg Levothyroxine Sodium (Levothyroxine 75 Mcg Tablet) 75 mcg PO QDAC [facility] Last Admin: 11/28/23 06:04 Dose: 75 mcg Losartan Potassium (Losartan 50 Mg Tablet) 100 mg PO DAILY [facility] Last Admin: 11/27/23 08:10 Dose: Not Given Magnesium Oxide (Magnesium Oxide 400 Mg Tablet) 400 mg PO DAILYWM [facility] Ondansetron HCl (Ondansetron Odt 4 Mg Tablet) 4 mg TL Q4HR PRN PRN Reason: Nausea / Vomiting Last Admin: 11/27/23 09:13 Dose: 4 mg Ondansetron HCl (Ondansetron 4 Mg/2 Ml Vial) 4 mg IVP Q4HR PRN PRN Reason: Nausea / Vomiting Last Admin: 11/27/23 17:07 Dose: 4 mg Pantoprazole Sodium (Pantoprazole 40 Mg Tablet) 40 mg PO QDAC [facility] Last Admin: 11/28/23 06:04 Dose: 40 mg Polyethylene Glycol (Polyethylene Glycol 3350 17 Gm Packet) 17 gm PO DAILY [facility] Last Admin: 11/27/23 08:10 Dose: 17 gm Objective - Vital Signs/Intake & Output Vital Signs: Vital Signs x48h Temp Pulse Resp BP Pulse Ox 11/28/23 07:23 36.7 C 66 16 144/65 H 94 11/28/23 05:00 36.7 C 67 19 157/96 H 95 11/28/23 00:16 36.7 C 78 14 152/73 H 93 Intake & Output: Intake & Output 11/25/23 11/26/23 11/27/23 11/28/23 23:59 23:59 23:59 23:59 Intake Total 2686 1050 200 Output Total 4774 242 8995 Balance 836 250 -1800 - Objective General Appearance: positive: No acute distress, Alert (sitting up eating breakfast) Eyes Bilateral: positive: Normal inspection ENT: positive: ENT inspection nml Neck: positive: Nml inspection Respiratory: positive: Chest non-tender, No respiratory distress, Breath sounds nml Cardiovascular: positive: Regular rate & rhythm Abdomen: positive: Non-tender, No distention Skin: positive: Color nml Extremities: positive: Non-tender, No pedal edema Neurologic/Psychiatric: positive: Oriented x3 - Lab Results Fish Bones: 11/28/23 05:02 11/28/23 05:02 Other Labs: Lab Results x24hrs 11/28/23 11/28/23 11/27/23 Range/Units 05:02 05:02 07:38 WBC 9.1 (4.8-10.8) x10^3/uL RBC 3.29 L (4.20-5.40) 10^6/uL Hgb 10.2 L (12.0-16.0) g/dL Hct 30.9 L (37.0-47.0) % MCV 93.9 (81.0-99.0) fL MCH 31.0 (27.0-31.0) pg MCHC 33.0 (32.0-36.0) g/dL RDW 12.4 (12.0-15.0) % Plt Count 205 (130-450) 10^3/uL MPV 9.9 (7.9-10.8) fL Neut # (Auto) 6.1 (1.5-6.6) 10^3/uL Lymph # (Auto) 1.8 (1.5-3.5) 10^3/uL [place] # (Auto) 0.7 (0.0-1.0) 10^3/uL Eos # (Auto) 0.4 (0.0-0.7) 10^3/uL Baso # (Auto) 0.1 (0.0-0.1) 10^3/uL Absolute Nucleated RBC 0.00 x10^3/uL Nucleated RBC % 0.0 /100WBC Sodium 130 L 129 L (135-145) mmol/L Potassium 4.4 4.5 (3.5-4.5) mmol/L Chloride 98 L 99 L (101-111) mmol/L Carbon Dioxide 26 24 (21-32) mmol/L Anion Gap 6.0 6.0 (6-13) BUN 12 13 (6-20) mg/dL Creatinine 0.8 0.9 (0.6-1.3) mg/dL Estimated GFR (MDRD) 70 L 61 L (>89) Glucose 119 H 140 H (74-104) mg/dL Calcium 9.3 9.1 (8.5-10.3) mg/dL Magnesium 1.5 L (1.7-2.3) mg/dL 11/27/23 Range/Units 07:38 WBC 8.8 (4.8-10.8) x10^3/uL RBC 3.31 L (4.20-5.40) 10^6/uL Hgb 10.1 L (12.0-16.0) g/dL Hct 31.4 L (37.0-47.0) % MCV 94.9 (81.0-99.0) fL MCH 30.5 (27.0-31.0) pg MCHC 32.2 (32.0-36.0) g/dL RDW 12.6 (12.0-15.0) % Plt Count 182 (130-450) 10^3/uL MPV 9.4 (7.9-10.8) fL Neut # (Auto) 6.4 (1.5-6.6) 10^3/uL Lymph # (Auto) 1.3 L (1.5-3.5) 10^3/uL [place] # (Auto) 0.5 (0.0-1.0) 10^3/uL Eos # (Auto) 0.3 (0.0-0.7) 10^3/uL Baso # (Auto) 0.1 (0.0-0.1) 10^3/uL Absolute Nucleated RBC 0.00 x10^3/uL Nucleated RBC % 0.0 /100WBC Sodium (135-145) mmol/L Potassium (3.5-4.5) mmol/L Chloride (101-111) mmol/L Carbon Dioxide (21-32) mmol/L Anion Gap (6-13) BUN (6-20) mg/dL Creatinine (0.6-1.3) mg/dL Estimated GFR (MDRD) (>89) Glucose (74-104) mg/dL Calcium (8.5-10.3) mg/dL Magnesium (1.7-2.3) mg/dL ABX Reporting Has patient been on IV antibiotics over the past 48 hours?: No Sepsis Event Note (H) - Evaluation Current Stage of Sepsis: Ruled out
[2023-11-28] MEDS: CHOLECALCIFEROL 400 UNIT TABLET PO SCH (08:55)
[2023-11-28] MEDS: CALCIUM CARB (OYSTER SHELL) 500 MG TABLET PO SCH (09:00)
[2023-11-28] MEDS: MAGNESIUM OXIDE 400 MG TABLET PO SCH (09:00)
--- NOTE | 2023-11-28 11:27 | DISCHARGE SUMMARY ---
Discharge Summary Admit Date: 11/26/23 Discharge Date: 11/28/23 Discharging Provider: Sravanthi Schulz PA-C Primary Care Provider: Zach Oliva MD Code Status: Attempt Resuscitation Condition at Discharge: Good Discharge Disposition: Home Health Service - DIAGNOSES Admission Diagnoses: Pelvic fracture Intractable pain Hyponatremia Inability to ambulate safely Discharge Diagnoses with Status of Each Condition: Pelvic ring fracture Stable pelvic fracture with pain Multimodal pain control instituted. She was somewhat intolerant of oxycodone and needed to change out to hydrocodone. Adjuncts of Neurontin and Tylenol were utilized. Additionally needed occasional Zofran. Her pain improved and she was able to ambulate with PT. Bowel meds were instituted. Renal insufficiency GFR was low on admission but improved quickly. This may have been a spurious lab value. She was not given NSAIDs during this admission Osteoporosis Patient admits to history of osteoporosis on DEXA scan. She does not take bisphosphonates due to the risk of osteonecrosis of the jaw and some dental work that she has had. I instituted calcium and vitamin D this admission to assist with healing of her pelvic ring fracture. Hyponatremia mild. Improved without intervention. Anemia Mild without clinical significance Hypertension Outpatient medications of amlodipine 10 mg daily, atenolol 100 mg daily and losartan 100 mg daily were restarted while she was inpatient. Her blood pressure was well-controlled. - HPI History of Present Illness: Patient is a 78-year-old female presenting to the emergency department with symptoms of fall after missing the last step at a restaurant. On arrival patient appears partially confused. She has repetitive questioning which is abnormal according to . She did not lose consciousness and EMS were called to patient to bring patient to the emergency department. Patient reports left hip pain no neck pain she notes mild nausea but no episodes of vomiting. Patient ANO x 2 on arrival. She follows some simple commands but has difficulty followibng all commands. She reports only hip pain no head pain. notes she is not on any blood thinners. He notes she was feeling completely fine prior to this." Patient was discussed with Ortho by ER who recommended to dc home, patient was in intractable pain, given Dialudid, later given NSAIDS still in significant pain will be admitted for pain control and PT eval in am Due to technical errror I was not able to see her on the video, had a nice talk with Bill, got all info, reassured him that Dorcas will be getting good care and also have informed to bring all the meds patient takes at home with him to hospital tomorrow am, Also informed and obtained oral consent for telemedicine visit and informed that I am based in [facility] very appreciative of the call. - CONSULTS | PROCEDURES Consultations: Dr Devlin, conditioner tender ortho by the ED Procedures: Left hip x-ray shows possible minimally displaced fracture of the left superior pubic ramus Pelvis CT shows minimally displaced left pubic ring fractures may be also a right parasymphyseal region fracture Cervical spine CT no acute abnormality Head CT no intracranial pathology - HOSPITAL COURSE Hospital Course: Missed a step when leaving a restaurant on the evening of admission. Had immediate pain in her left hip and pelvis. Went to the ED was diagnosed with pelvic fractures. Trauma CT was negative for head or neck injury although she did hit her head when she fell. Was unable to ambulate in the ED and therefore was admitted for pain control. Had difficulty with pain control and ambulation with therapy on her first hospital day stayed overnight. Pain medications were adjusted. She felt better and was able to ambulate. She was seen by PT on the date of discharge and cleared for discharge home. She will have home health PT. She is discharged to home in the care of her . Incidental findings are those of mild hyponatremia and mild hypomagnesemia. These were treated orally. She has osteoporosis with a history of tibial fracture. She has considered the risks and benefits of taking bisphosphonates and is opted not to do so. I did send her home on a calcium and vitamin D. - ALLERGIES Allergies/Adverse Reactions: Allergies Allergy/AdvReac Type Severity Reaction Status Date / Time cephalexin AdvReac Unknown Verified 11/25/23 18:13 codeine AdvReac Unknown Verified 11/25/23 18:12 morphine AdvReac Unknown Verified 11/25/23 18:12 tramadol AdvReac Unknown Verified 11/25/23 18:13 - MEDICATIONS Home Medications: Ambulatory Orders Medication Instructions Recorded Confirmed Atorvastatin Calcium 40 mg PO QPM 11/26/23 11/26/23 Levothyroxine Sodium [Synthroid] 75 mcg PO DAILY 11/26/23 11/26/23 Losartan [Cozaar] 100 mg PO DAILY 11/26/23 11/26/23 Omeprazole 20 mg PO DAILY 11/26/23 11/26/23 amLODIPine [Norvasc] 10 mg PO DAILY 11/26/23 11/26/23 atenoloL [Tenormin] 100 mg PO QPM 11/26/23 11/26/23 Docusate Sodium 250Mg Capsule 250 mg PO DAILY cap 11/27/23 [Colace 250Mg Capsule] Ondansetron Odt [Zofran Odt] 4 mg TL Q4HR PRN #30 tab 11/27/23 Calcium Carb ([place]) 500 mg PO DAILY #30 tab 11/28/23 [[place]-500] Cholecalciferol [Vitamin D3] 800 unit PO DAILY #30 tab 11/28/23 Gabapentin [Neurontin] 100 mg PO TID #90 cap 11/28/23 HYDROcod/ACETAM 5/325 [[place] 5/325] 1 tab PO Q6H PRN #40 tab 11/28/23 Magnesium Oxide [Mag Ox] 400 mg PO DAILYWM #30 tab 11/28/23 - PHYSICAL EXAM AT DISCHARGE General Appearance: positive: No acute distress, Alert Eyes Bilateral: positive: Normal inspection ENT: positive: Other (bruising about the left ear) Neck: positive: Nml inspection Respiratory: positive: Chest non-tender, Breath sounds nml Cardiovascular: positive: Regular rate & rhythm Abdomen: positive: Non-tender, No distention Back: positive: Nml inspection Skin: positive: Color nml Extremities: positive: Non-tender, No pedal edema Neurologic/Psychiatric: positive: Oriented x3 - LABS Result Diagrams: 11/28/23 05:02 11/28/23 05:02 - SEPSIS Current Stage of Sepsis: Ruled out - QUALITY (Female Hip Fx Only) Was patient sent home on osteoporosis medication?: Yes (pelvic ring fx) - FOLLOW UP Follow Up: DANIA Figueroa - TIME SPENT Time Spent in Discharge (Minutes): 35
--- NOTE | 2023-11-28 11:28 | PROVIDER PROGRESS NOTE ---
Progress Note 78 yo female w/minimally displaced left pubic ring fxs and possible nondisplaced fx in the R parasymphyseal region after a ground level fall. Today, Dorcas reports she is feeling much better today. Her pain is better controlled and she is not having nausea. She would like to go home. She feels she will be able to manage at home but needs a slower pace to work than what she feels is expected here. She is happy that she is able to move her left leg in bed without pain. She is having a bit more miscellaneous aches/pains from her fall (L ear is bruised, for example, and a bit sore). On exam, she is well appearing, lungs clr, RRR, abdomen soft, no C/C/E. Assessment/Plan: 1) Pelvic fx 2) Intractable nausea, resolved 3) Hypothyroidism 4) HTN Overall improved w/hydrocodone and scheduled tylenol. Encouraged her to get OTC tylenol. Discussed getting a shower chair/toilet riser. She is reluctant to use hydrocodone but advised she take it now to control pain so her rehab isn't delayed. Advised not to have the hydrocodone refilled when it is gone. Social work to give spouse lift assist number in [place] to help w/transporting her into their home.
[2023-11-28 12:37] VITALS: BP 146/66
== END 2023-11-28 12:30 | disposition home health service (06) ==
LOC: ED 17:59 → MS2 11-26 00:14
PROVIDERS: ADMIT Internal Medicine; ATTEND Physician Assistant Medical
DX: G89.11 Acute pain due to trauma (principal); S32.512A Fracture of superior rim of left pubis, initial encounter for closed fracture; W10.8XXA Fall (on) (from) other stairs and steps, initial encounter; R11.2 Nausea with vomiting, unspecified; Y92.511 Restaurant or cafe as the place of occurrence of the external cause; R42 Dizziness and giddiness; E87.1 Hypo-osmolality and hyponatremia; M81.0 Age-related osteoporosis without current pathological fracture; R26.2 Difficulty in walking, not elsewhere classified; E83.42 Hypomagnesemia; N28.9 Disorder of kidney and ureter, unspecified; D64.9 Anemia, unspecified; E78.5 Hyperlipidemia, unspecified; I10 Essential (primary) hypertension
CPT/HCPCS: 36415; 70450; 72125; 72192; 73502; 80048; 80053; 83735; 84484; 85025; 85610; 93005; 96361; 96365; 96375; 96376; 97110; 97161; 97166; 97530; 99285; A9270; G0378; J0131; J1170; Q0162